=== PATIENT | female | born 1980 | race Caucasian/White ===

== ENCOUNTER 2023-11-17 18:03 | Emergency (ER) | payer BC, SELFPAY ==
[2023-11-17 18:05] VITALS: BP 139/94
--- NOTE | 2023-11-17 18:55 | ED.GENMED ---
History of Present Illness
General
Chief Complaint: Anxiety
Source: patient
Exam Limitations: none
Time Seen by Provider: 11/17/23 18:18
Travel History
Have you had any contact with someone who has COVID-19?: No
Do you have any symptoms of coronavirus? Fever > 100 degrees, chills, cough, shortness of breath, sore throat, loss of taste or smell, muscle aches, or headache?: No
History of Present Illness
History of Present Illness:
This is a 42 year old female that comes in with c/o feeling she is in a fog. States that today at work she feels that she had a panic attack but this was different. State that she feels that her brain felt like it just shut down and she was in a
fog. States that she left work and went home and eat a bowl of cereal. States that this happened on Tuesday when she was in the car with her kids. States that she also recently had a UTI and took medication for this which she finished on Tuesday.
States that she had chest pain, SOB, and a headache. Denies any fever, chills, abd pain, nausea, vomiting, diarrhea, dizziness, urinary burning.
Past History
Past History
ED Past Medical History: Psychiatric (anxiety); Negative Asthma, HTN, Hypercholesterolemia or NIDDM
ED Past Surgical History: Appendectomy, (X 3) and Other (abdominoplasty, Hernia repair, Breast augmentation)
Social History
Tobacco: Vaping (stopped 3 weeks ago.)
Alcohol: Occasional
Drug: None
Personal: Other (Seperated)
Living: with family
Employment: Employed
Review of Systems
Review of Systems
All Other Systems: ROS reviewed and negative except as documented in HPI and ROS
Constitutional: Reports no symptoms; Denies fever or chills
EENT: Reports no symptoms
Respiratory: Reports trouble breathing; Denies cough
Cardiac: Denies chest pain
ABD/GI: Reports no symptoms; Denies abdominal pain, nausea, vomiting or diarrhea
: Reports no symptoms; Denies dysuria, frequency or urgency
Musculoskeletal: Reports no symptoms
Skin: Reports no symptoms
Neurological: Reports headache; Denies dizzy
Psychiatric: Reports no symptoms
Phy Exam
General Physical Exam
General Presentation: no apparent distress
General age: appears stated age
General Skin: warm and dry
General Habitus: normal
General Mental: alert
General Hydration: appears well hydrated
ENT Exam
ENT Exam: TM's normal, pharynx normal and neck supple
Eye Exam
Eye Exam: EOMI
Cardiovascular Exam
Cardiovascular Exam: regular rate/rhythm, no edema, no murmur and normal peripheral pulses
Pulmonary Exam
Pulmonary Exam: lungs clear, no respiratory distress, no rales, chest non tender, no crackles, no rhonchi, no wheezing and no cough
Gastrointestinal Exam
Gastrointestinal Exam: normal bowel sounds, non tender, soft, no organomegaly, no pulsatile mass and non distended
Musculoskeletal Exam
Musculoskeletal Exam: full ROM and no edema
Skin Exam
Skin Exam: normal color, warm/dry, no rash and no petechia
Course
Orders/Labs/Results
Orders:
Orders
11/17/23 18:08
EKG [Electrocardiogram (*1)] Urgent
Reason for Study: Palpitations
11/17/23 18:09
EKG- Treatment ONCE
11/17/23 18:54
CT Head W/o Iv Contrast Urgent
Comment:
Reason For Exam: Headache, feels in a fog
Test Result ONCE
11/17/23 19:03
COVID-19 Antigen Urgent
Source: Nasal Swab
Complete Blood Count/With Diff Urgent
Comprehensive Metabolic Panel Urgent
HCG, Serum Qualitative Screen Urgent
Urinalysis Reflex To Culture Urgent
Date Specimen was Collected: 11/17/23
Time Specimen was Collected: 19:01
11/17/23 19:32
Troponin I Urgent
Abnormal Lab Results
11/17/23
19:03
RBC 3.34 L 10^6/uL
(4.20-5.40)
Hgb 10.4 L g/dL
(12.0-16.0)
Hct 31.1 L %
(37.0-47.0)
MCH 31.1 H pg
(27.0-31.0)
Absolute Monos (auto) 0.7 H 10^3/uL
(0.1-0.6)
Monocytes % 13.7 H %
(1.7-9.3)
Creatinine 0.5 L mg/dL
(0.6-1.0)
11/17/23 19:03
11/17/23 19:03
H/H slightly low. HCG negative. COVID negative. Troponin <0.012
Vital Signs
Initial and Last Documented VS:
Initial Vital Signs
Pulse Resp BP Pulse Ox
79 18 139/94 100
11/17/23 18:05 11/17/23 18:05 11/17/23 18:05 11/17/23 18:05
Last Documented Vital Signs
Pulse Resp BP Pulse Ox
74 18 125/87 100
11/17/23 19:43 11/17/23 19:43 11/17/23 19:43 11/17/23 19:43
MDM/Problems Addressed
Differential Diagnosis Includes:
Anxiety, COVID
MDM/Problems Addressed:
This is a 42 year old female that comes in with c/o feeling like she is in fog. States that this feels different then a panic attack. States that this also happened on Tuesday. Patient just finished antibiotic for a UTI. States that she had chest
pain, SOB, headache.
Will get labs CT head, and Urine.
Back into see patient. Explained that her Hgb is slightly low but has been low prior labs, HCG is negative, she is COVID negative and her Troponin is normal. CT of the head is normal. Explained that this may all be due to her Anxiety. Patient to
increase her water intake to 8-8oz glasses daily. Follow up with the family doctor return with any concerns.
Chronic conditions affecting care: Psychiatric illness
Acute Exacerbation and/or Progression of Chronic Illness: Psychiatric illness
*Radiology
Radiology exam reviewed: radiology read reviewed (CT head- No acute intracranial abnormality noted)
*Pulse Oximetry
Patient hypoxic: no
*EKG
Interpreted by ED Provider?: Yes
Heart Rate: 77
Rate: normal
Rhythm: sinus
Dorset: normal axis
Interval: normal interval
QRS Pattern: normal QRS
Ischemia: no ischemia
*Long Chain Quiller Tender Interpretation
Rate: Long Chain Quiller Tender- N/A
*Critical Care Note
Total Time (30-74mins, 75-104mins- exclusive of procedures): Not Applicable
ED Attending Note
-
Portions of this chart may have been created with voice recognition software.� Occasional wrong word or��sound alike� substitutions may have occurred due to the inherent limitations of voice recognition software.
Discharge Plan
Departure
Patient Disposition: Home (Routine Discharge)
Date of Disposition: 11/17/23
Time of Disposition: 20:16
Patient with high blood pressure during this ER visit?: No
Condition: Good
Covid-19: Negative COVID-19
Discharge Problem:
Anxiety
Instructions: Anxiety, Adult (DC)
Prescriptions:
No Action
clonidine HCl 0.1 mg Tablet
0.1 mg PO Q8HPRN PRN (Reason: anxiety)
buspirone 5 mg Tablet
5 mg PO TID
Patient Comments:
poatient states she stop taking 10mg and went back to 5mg
gabapentin 400 mg capsule
400 mg PO TID
levetiracetam [Keppra] 500 mg Tablet
500 mg PO DAILY
mirtazapine 15 mg tablet
15 mg PO HS
propranolol 20 mg Tablet
20 mg PO DAILY PRN (Reason: anxiety)
melatonin 5 mg Tablet
5 mg PO HS
Referrals:
Rock Eric DO [Family Provider] - Follow up in 2-3 days
Activity Restrictions/Additional Instructions:
As discussed, your Hgb is a little low but this is consistent with prior labs. Your HCG if negative, COVID is negative and your CT of the head is normal. This is most likely all anxiety. Please increase your water intake to 8-8oz glasses daily.
Follow up with the family doctor for recheck. IF YOU HAVE ANY OTHER CONCERNS PLEASE RETURN TO THE EMERGENCY ROOM.
Interventions
Interventions:
*Risk Screen - Suicide Last Done: 11/17/23 18:05
*General Assessment Last Done: 11/17/23 18:05
ED- Fall Risk Assessment Last Done: 11/17/23 19:07
*ED COVID-19 Vaccine History Last Done: 11/17/23 18:05
ED-Psychological Assessment Last Done: 11/17/23 19:06
[2023-11-17 19:10] LABS: % Basophils 0.6 % (0-2); % Eosinophils 1.6 % (0-6); % Immature Granulocytes 0.2 % (0-0.5); % Lymphocytes 34.3 % (20.5-51.1); % Monocytes 13.7 % (1.7-9.3); % Neutrophils 49.6 % (42.2-75.2); Absolute Eosinophils 0.1 10^3/uL (0-0.7); Absolute Lymphocytes 1.8 10^3/uL (1.2-3.4); Absolute Monocytes 0.7 10^3/uL (0.1-0.6); Absolute Neutrophils 2.5 10^3/uL (1.4-6.5); Hematocrit 31.1 % (37.0-47.0); Hemoglobin 10.4 g/dL (12.0-16.0); Mean Corp Hgb Conc. 33.4 g/dL (33.0-37.0); Mean Corpuscular Hgb 31.1 pg (27.0-31.0); Mean Corpuscular Volume 93.1 fL (81.0-99.0); Mean Platelet Volume 9.7 fL (7.4-10.4); Nucleated Red Blood Cells % 0 %; Platelet Count 231 10^3/uL (130-400); Red Blood Cell Count 3.34 10^6/uL (4.20-5.40); Red Cell Dist. Width 13.9 % (11.5-14.5); White Blood Cell Count 5.1 10^3/uL (4.8-10.8)
[2023-11-17 19:12] LABS: Urine Albumin Negative (Neg - Trace); Urine Bilirubin Negative (Negative); Urine Character Clear (Clear); Urine Color Yellow; Urine Glucose Negative (Negative); Urine Ketone Negative (Negative); Urine Leukocyte Negative (Negative); Urine Nitrite Negative (Negative); Urine Occult Blood Negative (Negative); Urine Specific Gravity 1.005 (<1.030); Urine Urobilinogen Negative (Neg - 1+)
[2023-11-17 19:23] LABS: COVID-19 Antigen Negative (Negative)
[2023-11-17 19:34] LABS: HCG, Serum Qualitative Screen Negative
[2023-11-17 19:40] LABS: ALT (SGPT) 13 U/L (0-35); AST (SGOT) 21 U/L (14-36); Albumin 3.8 g/dl (3.5-5.0); Alkaline Phosphatase 44 U/L (38-126); Blood Urea Nitrogen 7 mg/dl (7-17); Calcium 9.4 mg/dl (8.4-10.2); Carbon Dioxide 25 mmol/L (22-30); Chloride 102 mmol/L (98-107); Glucose 92 mg/dl (70-99); Potassium 3.9 mmol/L (3.5-5.1); Sodium 136 mmol/L (135-145); Total Bilirubin 0.2 mg/dl (0.2-1.3); eGFR > 60.00
[2023-11-17 19:43] VITALS: BP 125/87
[2023-11-17 20:03] LABS: Troponin I < 0.012 ng/ml
[2023-11-17 20:26] VITALS: BP 122/81
== END 2023-11-17 20:28 | disposition home or self-care (01) ==
LOC: EMR 18:03
PROVIDERS: Clinical Nurse Specialist Family Health; EMERGENCY PHYSICIAN Emergency Medicine; FAMILY PHYSICIAN Family Medicine
DX: F41.9 Anxiety disorder, unspecified (principal); F17.290 Nicotine dependence, other tobacco product, uncomplicated; Z11.52 Encounter for screening for COVID-19
CPT/HCPCS: 99285; 70450; 80053; 81003; 84484; 84703; 85025; 87811; 93005